=== PATIENT | male | born 1980 | race Caucasian/White ===

== ENCOUNTER 2019-06-22 20:21 | Emergency (ER) | payer MEDICAID ==
[~2019-06-22] VITALS: Ht 177.2 cm; Wt 142.7 kg
[~2019-06-22 20:21] MED LIST: CLON-527 PO; FLUT16SP10 NAS; FURO-150 PO; HYDR-4383 PO; LISI-600 PO; METF500T PO; PRAZ2CAP2 PO; TEMA30CA5 PO
[2019-06-22] MEDS ORDERED: naproxen 500mg tablet PO STA (20:35)
[2019-06-22] MEDS ORDERED: HYDROcodone/acetaminophen 10/325mg tab PO STA (20:35)
--- NOTE | 2019-06-22 21:02 | NUR ---
pt vomited, unsure of wheher or not he vomited pain meds up
[2019-06-22] MEDS ORDERED: ketorolac trometh. 30mg/ml inj. IM ONE (21:10)
[2019-06-22] MEDS ORDERED: cyclobenzaprine 10mg tablet PO ONE (21:10)
[2019-06-22] MEDS ORDERED: morphine 10mg/ml inj. IM ONE (21:10)
[2019-06-22] MEDS ORDERED: LORazepam 2 mg/ml vial IM ONE (21:15)
[2019-06-22] MEDS ORDERED: haloperidol lactate 5mg/ml inj IM ONE (21:15)
[2019-06-22 21:40] LABS: ALANINE AMINOTRANSFERASE 61 U/L (12-78); ALBUMIN/GLOBULIN RATIO 0.9 (1.1-1.5); ALKALINE PHOSPHATASE 130 IU/L (46-116); ANION GAP 10 (8-16); ASPARTATE AMINO TRANSFERASE 10 U/L (10-37); BILIRUBIN,TOTAL 0.6 MG/DL (0.1-1.0); BLOOD UREA NITROGEN 11 MG/DL (7-18); BUN/CREATININE RATIO 10.8 (5.4-32.0); CALCIUM 8.7 MG/DL (8.5-10.1); CHLORIDE 106 MMOL/L (99-107); CREATININE 1.02 MG/DL (0.60-1.10); ETHANOL < 0.010 GM/DL (0.0-0.010); GLUCOSE 122 MG/DL (70-104); MAGNESIUM 1.5 MG/DL (1.5-2.4); SODIUM 143 MMOL/L (135-145); TOTAL PROTEIN 8.3 G/DL (6.4-8.2); eGFR 82 ML/MIN
[2019-06-22 21:46] LABS: HEMATOCRIT 47.5 % (42.0-52.0); HEMOGLOBIN 16.6 g/dl (14.0-17.9); MEAN CORPUSCULAR HEMOGLOBIN 30.8 PG (27.0-31.0); MEAN CORPUSCULAR HGB CONC 34.9 g/dL (33.0-36.5); MEAN CORPUSCULAR VOLUME 88.1 FL (78-98); POTASSIUM 3.8 MMOL/L (3.5-5.1); RED BLOOD COUNT 5.39 X10'6 (4.70-6.10); RED CELL DISTRIBUTION WIDTH 13.2 % (11.5-14.5); WHITE BLOOD COUNT 10.5 X10'3 (4.5-11.0)
[2019-06-22 21:47] LABS: MEAN PLATELET VOLUME 9.7 FL (7.4-10.4); PLATELET COUNT 251 X10'3 (140-440)
[2019-06-22] MEDS ORDERED: magnesium oxide 400mg tablet PO ONE (21:50)
[2019-06-22] MEDS ORDERED: CYCL-1 PO (21:53)
[2019-06-22] MEDS ORDERED: HYDR-3965 PO (21:53)
[2019-06-22] MEDS ORDERED: NAPR-56 PO (21:53)
[2019-06-22 22:12] VITALS: BP 146/91
[2019-06-22 22:17] LABS: TOTAL CELLS COUNTED 100
[2019-06-22 22:18] LABS: PLATELET ESTIMATE NORMAL
== END 2019-06-22 22:15 | disposition home or self-care (01) ==
LOC: ER 20:21
DX: M25.511 Pain in right shoulder (principal); R25.2 Cramp and spasm; E78.00 Pure hypercholesterolemia, unspecified; I10 Essential (primary) hypertension; J44.9 Chronic obstructive pulmonary disease, unspecified; E11.9 Type 2 diabetes mellitus without complications; F17.200 Nicotine dependence, unspecified, uncomplicated; F12.90 Cannabis use, unspecified, uncomplicated; Z90.49 Acquired absence of other specified parts of digestive tract; Z88.8 Allergy status to other drugs, medicaments and biological substances; Z79.899 Other long term (current) drug therapy; X50.0XXA Overexertion from strenuous movement or load, initial encounter; Y93.89 Activity, other specified; Y92.89 Other specified places as the place of occurrence of the external cause; Y99.9 Unspecified external cause status
CPT/HCPCS: 73030; 80053; 80320; 83735; 85025; 96372; 99284; J1630; J1885; J2060; J2270

== ENCOUNTER 2020-03-01 14:02 | Outpatient (CLI) | payer MEDICAID ==
[~2020-03-01 14:02] MED LIST changes: +CYCL-1 PO
== END 2020-03-01 23:59 | disposition home or self-care (01) ==
LOC: RAD 14:02
DX: G40.909 Epilepsy, unspecified, not intractable, without status epilepticus (principal)
CPT/HCPCS: 95819

== ENCOUNTER 2021-11-04 17:41 | Inpatient (IN) | payer MEDICARE, MEDICAID ==
[~2021-11-04] VITALS: Ht 175.3 cm; Wt 122.0 kg
[2021-11-04 00:45] VITALS: BP 165/100
[~2021-11-04 17:41] MED LIST changes: -LISI-600 PO; +LISI20TA28 PO
[2021-11-04] MEDS ORDERED: ketorolac trometh. 30mg/ml inj. IV ONE ×2 (17:50→18:00)
[2021-11-04] MEDS ORDERED: ondansetron/PF 4mg/2ml inj IV ONE ×2 (18:00→21:00)
[2021-11-04] MEDS ORDERED: normal saline 1000ML IV soln IVB ONE (18:00)
[2021-11-04] MEDS: morphine 4 MG/ML inj SYRINge IV PRN ×3 (18:10→23:53)
[2021-11-04 18:22] LABS: BASOPHILS # (AUTO) 0.1 X10'3 (0-0.2); BASOPHILS % (AUTO) 0.6 % (0-1); EOSINOPHILS % (AUTO) 0.2 % (0-6); HEMATOCRIT 48.6 % (42.0-52.0); HEMOGLOBIN 16.8 g/dl (14.0-17.9); LYMPHOCYTES # (AUTO) 1.9 X10'3 (1.1-4.8); LYMPHOCYTES % (AUTO) 11.4 % (21-51); MEAN CORPUSCULAR HEMOGLOBIN 30.6 PG (27.0-31.0); MEAN CORPUSCULAR HGB CONC 34.5 g/dL (33.0-36.5); MEAN CORPUSCULAR VOLUME 88.5 FL (78-98); MEAN PLATELET VOLUME 10.2 FL (7.4-10.4); MONOCYTES # (AUTO) 0.7 X10'3 (0-0.9); MONOCYTES % (AUTO) 4.2 % (2-12); NEUTROPHILS # (AUTO) 14.1 X10'3 (1.8-7.7); NEUTROPHILS % (AUTO) 83.6 % (42-75); PLATELET COUNT 244 X10'3 (140-440); RED BLOOD COUNT 5.49 X10'6 (4.70-6.10); RED CELL DISTRIBUTION WIDTH 14.4 % (11.5-14.5); WHITE BLOOD COUNT 16.8 X10'3 (4.5-11.0)
[2021-11-04 18:33] LABS: ALANINE AMINOTRANSFERASE 48 U/L (12-78); ALBUMIN/GLOBULIN RATIO 0.9 (1.1-1.5); ALKALINE PHOSPHATASE 108 IU/L (46-116); ANION GAP 15 (8-16); ASPARTATE AMINO TRANSFERASE 24 U/L (10-37); BILIRUBIN,TOTAL 1.4 MG/DL (0.1-1.0); BLOOD UREA NITROGEN 11 MG/DL (7-18); BUN/CREATININE RATIO 12.4 (5.4-32.0); CALCIUM 9.4 MG/DL (8.5-10.1); CHLORIDE 102 MMOL/L (99-107); CREATININE 0.89 MG/DL (0.60-1.10); GLUCOSE 145 MG/DL (70-104); POTASSIUM 3.4 MMOL/L (3.5-5.1); SODIUM 139 MMOL/L (135-145); TOTAL CARBON DIOXIDE 22.4 MMOL/L (24-32); TOTAL PROTEIN 8.7 G/DL (6.4-8.2); eGFR > 90 ML/MIN
[2021-11-04 18:57] LABS: LIPASE 1405 U/L (73-393)
[2021-11-04 19:13] LABS: CLARITY,URINE CLEAR (Clear); COLOR,URINE YELLOW (Yellow); GLUCOSE, URINE >=1000 mg/dl (Neg); KETONES,URINE >=80 mg/dl (Neg); LEUKOCYTE ESTERASE ,URINE NEGATIVE (Neg); NITRITES, URINE NEGATIVE (Neg); OCCULT BLOOD,URINE MODERATE (Neg); PROTEIN,URINE NEGATIVE (Neg); UROBILINOGEN,URINE 0.2 E.U/dL (0.2-1.0)
[2021-11-04 19:22] LABS: UA COLLECTION TYPE URINAL
[2021-11-04 19:26] LABS: BACTERIA,URINE FEW /HPF (Neg); RBC,URINE 0-2 /HPF (0-2); SQUAMOUS EPITHELIAL CELL,UR NONE SEEN /LPF (FEW); WBC,URINE 0-4 /HPF (0-4)
[2021-11-04] MEDS ORDERED: piperacillin/tazo 3.375gm/50ml 50 ML IV ONE (20:35)
[2021-11-04] MEDS ORDERED: temazepam 15mg capsule PO PRN (21:00)
[2021-11-04] MEDS ORDERED: diphenhydrAMINE 25mg capsule PO PRN (22:10)
[2021-11-04] MEDS ORDERED: ondansetron 4mg rapidly disintigrating tab PO PRN (22:10)
[2021-11-04] MEDS ORDERED: HYDROcodone/acetaminophen 5mg/325mg tablet PO PRN (22:10)
[2021-11-04] MEDS ORDERED: bisacodyl 10mg suppository rectal RC PRN (22:10)
[2021-11-04] MEDS ORDERED: diphenhydrAMINE 50 mg/ml inj IV PRN (22:10)
[2021-11-04] MEDS: potassium Cl 20mEq in NS 1,000 ML IV SCH (22:10)
[2021-11-04] MEDS ORDERED: mag hydrox/Alum hydrox/simeth 30ml oral suspension PO PRN (22:10)
[2021-11-04] MEDS ORDERED: POTASSIUM BICARB 20meq eff tab 20 MEQ TABLET.EFF PO PRN ×2 (22:10)
[2021-11-04] MEDS ORDERED: acetaminophen 325mg tablet PO PRN ×2 (22:10)
[2021-11-04] MEDS ORDERED: morphine 2 MG/ML inj. syringe IV PRN ×2 (22:10)
[2021-11-04] MEDS ORDERED: magnesium Cl slow-release 64mg tablet PO PRN (22:10)
[2021-11-04] MEDS ORDERED: magnesium 2GM in 50ml NS 50 ML IV PRN (22:10)
[2021-11-04] MEDS ORDERED: magnesium hydroxide 30ml (MOM) UD suspension PO PRN (22:10)
[2021-11-04] MEDS ORDERED: magnesium 4gm in 100ml NS 100 ML IV PRN (22:10)
[2021-11-04] MEDS ORDERED: insulin Lispro (HumaLOG) vial - multi-dose SQ SCH (22:15)
[2021-11-04] MEDS ORDERED: glucagon, human recombinant 1mg kit SUBCUT PRN (22:15)
[2021-11-04] MEDS ORDERED: MESSAGE TO PHARMACY PO ONE (22:15)
[2021-11-04] MEDS ORDERED: dextrose 50%-water 50ml dispensing syringe IV PRN ×2 (22:15)
[2021-11-04] MEDS ORDERED: DEXTROSE 15 GM of carb/4 tabs (each vial/BOTTLE has 4 tablets) PO PRN ×2 (22:15)
[2021-11-04 22:22] LABS: TOTAL CELLS COUNTED 100; TOXIC GRANULATION 1+
[2021-11-04 22:23] LABS: PLATELET ESTIMATE NORMAL
[2021-11-04 22:45] LABS: HEMOGLOBIN A1C 6.7 % (4.5-6.2)
[2021-11-04 22:50] LABS: URINE AMPHETAMINE SCREEN NEGATIVE (Neg); URINE BARBITUATE SCREEN NEGATIVE (Neg); URINE BENZODIAZEPINES SCREEN NEGATIVE (Neg); URINE CANNABINOID SCREEN POSITIVE (Neg); URINE COCAINE SCREEN NEGATIVE (Neg); URINE METHADONE SCREEN NEGATIVE (Neg); URINE OPIATE SCREEN POSITIVE (Neg); URINE PHENCYCLIDINE SCREEN NEGATIVE (Neg)
[2021-11-04 22:52] LABS: APTT 26 SECONDS (22-32)
[2021-11-04 22:54] LABS: AMYLASE 80 U/L (25-115); CREATINE KINASE 93 U/L (39-308); LIPASE 372 U/L (73-393); MAGNESIUM 1.4 MG/DL (1.5-2.4); POTASSIUM 3.2 MMOL/L (3.5-5.1)
[2021-11-05] VITALS (17 sets, daily range): BP systolic 126–175; BP diastolic 82–114
--- NOTE | 2021-11-05 00:18 | NUR ---
Received report from Nahum Porter RN. Patient to follow shortly.
[2021-11-05] MEDS ORDERED: potassium CL 10mEq/100ml bag 100 ML IV PRN (00:20)
[2021-11-05] MEDS ORDERED: potassium Cl 20 mEq SR tablet PO PRN (00:20)
[2021-11-05] MEDS ORDERED: magnesium Cl slow-release 64mg tablet PO PRN (00:20)
[2021-11-05] MEDS ORDERED: magnesium 4gm in 100ml NS 100 ML IV PRN (00:20)
--- NOTE | 2021-11-05 00:40 | NUR ---
Patient arrived to floor on a gurney from ER. A&O, now sitting on the side of bed. VS initiated and MRSA swab done. Patient is now taking his pre-surgical shower.
[2021-11-05] MEDS: HYDROcodone/acetaminophen 10/325mg tab PO PRN ×4 (01:35→23:45)
[2021-11-05] MEDS: potassium CL 10mEq/100ml bag 100 ML IV PRN ×3 (01:50→05:55)
[2021-11-05] MEDS ORDERED: OMEG-167 PO (04:04)
[2021-11-05] MEDS ORDERED: CHOL100025 PO (04:04)
[2021-11-05] MEDS ORDERED: FLO0.4C PO (04:04)
[2021-11-05] MEDS ORDERED: FEXO1TAB8 PO (04:04)
[2021-11-05] MEDS ORDERED: HYDR25TA5 PO (04:04)
[2021-11-05] MEDS ORDERED: ATOR20TA PO (04:04)
[2021-11-05] MEDS ORDERED: OMEP40CA21 PO (04:04)
[2021-11-05] MEDS: HYDROmorphone inj. 0.5 MG/0.5 ML DISP.SYRIN IV PRN ×3 (04:19→22:56)
--- NOTE | 2021-11-05 06:30 | NUR ---
Patient has been taken to surgery right after POC blood sugar obtained. Reported off to Lory WALKER.
[2021-11-05] MEDS ORDERED: LIDOcaine 1% W/epiNEPHrine 1:100,000 20ml vial ONE (06:39)
[2021-11-05] MEDS ORDERED: BUPIVAcaine/PF 2.5 mg/ml (0.25%) 30ml vial ONE (06:39)
[2021-11-05] MEDS ORDERED: LIDOcaine 1% 30ml preserv. free vial ONE (06:39)
[2021-11-05] MEDS ORDERED: ondansetron/PF 4mg/2ml inj ONE (07:04)
[2021-11-05] MEDS ORDERED: sevoflurane 250ml liquid IH ONE (07:04)
[2021-11-05] MEDS ORDERED: rocuronium 10mg/ml inj IV ONE ×2 (07:04→07:06)
[2021-11-05] MEDS ORDERED: fentaNYL /PF 50mcg/ml 5ml ampule ONE (07:05)
[2021-11-05] MEDS ORDERED: midazolam 1 mg/ML 2ml injection ONE (07:05)
[2021-11-05] MEDS ORDERED: propofol inj 20 ML IV ONE (07:06)
[2021-11-05 07:19] LABS: BASOPHILS # (AUTO) 0.1 X10'3 (0-0.2); BASOPHILS % (AUTO) 0.5 % (0-1); EOSINOPHILS # (AUTO) 0.4 X10'3 (0-0.9); EOSINOPHILS % (AUTO) 2.3 % (0-6); HEMATOCRIT 49.3 % (42.0-52.0); HEMOGLOBIN 16.2 g/dl (14.0-17.9); LYMPHOCYTES # (AUTO) 2.5 X10'3 (1.1-4.8); LYMPHOCYTES % (AUTO) 15.9 % (21-51); MEAN CORPUSCULAR HEMOGLOBIN 29.2 PG (27.0-31.0); MEAN CORPUSCULAR HGB CONC 32.8 g/dL (33.0-36.5); MEAN CORPUSCULAR VOLUME 88.9 FL (78-98); MEAN PLATELET VOLUME 10.1 FL (7.4-10.4); MONOCYTES # (AUTO) 1.4 X10'3 (0-0.9); NEUTROPHILS # (AUTO) 11.6 X10'3 (1.8-7.7); NEUTROPHILS % (AUTO) 72.3 % (42-75); PLATELET COUNT 212 X10'3 (140-440); RED BLOOD COUNT 5.55 X10'6 (4.70-6.10); RED CELL DISTRIBUTION WIDTH 14.3 % (11.5-14.5)
[2021-11-05] MEDS ORDERED: meperidine/PF 25mg/ml syringe IV PRN ×2 (07:40)
[2021-11-05] MEDS ORDERED: ondansetron/PF 4mg/2ml inj IV PRN (07:40)
[2021-11-05] MEDS ORDERED: proCHLORperazine 10 MG/2 ml inj IV PRN (07:40)
[2021-11-05] MEDS ORDERED: ringers solution, lacted 1,000 ML IV SCH (07:40)
[2021-11-05] MEDS ORDERED: morphine 2 MG/ML inj. syringe IV PRN (07:40)
[2021-11-05] MEDS ORDERED: BUPIVAcaine 0.5% inj/PF 30 ml vial IJ ONE (07:44)
[2021-11-05] MEDS ORDERED: LIDOcaine 1% 30ml preserv. free vial IJ ONE (07:47)
[2021-11-05 07:48] LABS: ALANINE AMINOTRANSFERASE 38 U/L (12-78); ALBUMIN 3.5 G/DL (3.4-5.0); ALBUMIN/GLOBULIN RATIO 0.8 (1.1-1.5); ALKALINE PHOSPHATASE 87 IU/L (46-116); ANION GAP 11 (8-16); ASPARTATE AMINO TRANSFERASE 20 U/L (10-37); BILIRUBIN,TOTAL 1.1 MG/DL (0.1-1.0); BLOOD UREA NITROGEN 9 MG/DL (7-18); BUN/CREATININE RATIO 14.3 (5.4-32.0); CALCIUM 7.8 MG/DL (8.5-10.1); CHLORIDE 105 MMOL/L (99-107); CHOL/HDL RATIO 2.9 (0.00-4.99); CHOLESTEROL 83 MG/DL (0-200); CREATININE 0.63 MG/DL (0.60-1.10); GLUCOSE 87 MG/DL (70-104); HDL CHOLESTEROL 29 MG/DL (35-60); LDL CHOLESTEROL 37 MG/DL (50-100); MAGNESIUM 2.5 MG/DL (1.5-2.4); POTASSIUM 3.3 MMOL/L (3.5-5.1); SODIUM 141 MMOL/L (135-145); TOTAL CARBON DIOXIDE 24.7 MMOL/L (24-32); TOTAL PROTEIN 7.8 G/DL (6.4-8.2); TRIGLYCERIDES 137 MG/DL (20-135); eGFR > 90 ML/MIN
[2021-11-05] MEDS: K and/or MAG REPLACEMENT MC SCH ×4 (08:00→20:00)
[2021-11-05] MEDS: piperacillin/tazo 4.5gm/100ml 100 ML IV SCH ×3 (08:00→23:53)
[2021-11-05] MEDS: potassium Cl 20mEq in NS 1,000 ML IV SCH ×2 (08:10→19:23)
[2021-11-05] MEDS ORDERED: naloxone 0.4 mg/ml inj IV PRN (09:25)
[2021-11-05] MEDS ORDERED: HYDROcodone/acetaminophen 10/325mg tab PO PRN (09:25)
[2021-11-05] MEDS ORDERED: HYDROcodone/acetaminophen 5mg/325mg tablet PO PRN (09:25)
[2021-11-05] MEDS ORDERED: dexamethasone sod phosphate 4mg/ml inj. ONE (09:28)
[2021-11-05] MEDS ORDERED: sugammadex 200mg/2ml injection IV ONE (09:29)
[2021-11-05] MEDS ORDERED: neostigmine methylsulfate 1 MG/ML 10ml vial ONE (09:30)
[2021-11-05] MEDS ORDERED: glycopyrrolate 0.2mg/ml inj ONE (09:30)
[2021-11-05] MEDS: morphine 4 MG/ML inj SYRINge IV PRN ×3 (09:46→10:32)
--- NOTE | 2021-11-05 09:49 | NUR ---
Malnutrition consult: Pt reports 24-33 lb wt loss with decreased appetite per malnutrition risk screen with RN. Pt admit for acute appendicitis and acute pancreatitis, currently in OR. Most recent scaled wt hx in EMR is 131.5 kg from 12/31/14, which is consistent with following reported wt hx. Current documented wt is 122 kg though isn't scaled. Pt likely experienced some changes in eating habits secondary to pain with N/V. No documented significant decrease in muscle strength or edema and per H&P pt appears well developed well nourished. Pt currently lacks a minimum of two criteria for malnutrition. Noted pt with PMH T2DM, well controlled with A1c 6.7%, DM education not warranted at this time. Will continue to follow. Addendum: 11/05/21 at [address] Amended: Links added.
[2021-11-05] MEDS: meperidine/PF 25mg/ml syringe IV PRN ×3 (09:52→10:53)
--- NOTE | 2021-11-05 11:05 | NUR ---
PATIENT HAS MET CRITERIA FOR TRANSFER TO THE PCU. VSS. DRESSINGS INTACT. BED LOW, CALL LIGHT PRESENT AND 2 RAILS UP. RN PRESENT TO ACCEPT CARE OF PATIENT AND REPORT HAS BEEN CALLED. ALL QUESTIONS ANSWERED TO ACCEPTING RN. MD AWARE ABOUT THE CONSISTENT PAIN LEVEL AND PAIN MEDICATION GIVEN AND NO NEW ORDERED RECEIVED AT THIS TIME. Addendum: 11/05/21 at 1142 by Willam Dumont RN Amended: Links added.
[2021-11-05] MEDS: pantoprazole 40MG/NS 100ML BAG 100 ML IV SCH (13:02)
[2021-11-05] MEDS: docusate sod 100mg capsule PO SCH ×2 (13:03→21:55)
[2021-11-05] MEDS ORDERED: ALBU17AE26 PO (15:10)
[2021-11-05] MEDS ORDERED: DULA1.5P SQ (15:10)
[2021-11-05] MEDS ORDERED: GLIM4TAB7 PO (15:10)
[2021-11-05] MEDS ORDERED: OMEP20CA16 PO (15:10)
[2021-11-05] MEDS ORDERED: CLON-373 PO (15:10)
[2021-11-05] MEDS ORDERED: LISI40TA13 PO (15:10)
[2021-11-05] MEDS ORDERED: ACET-655 PO (15:10)
[2021-11-05] MEDS ORDERED: FLO110IN PO (15:10)
[2021-11-05] MEDS ORDERED: CLON0.3T36 PO (15:10)
[2021-11-05] MEDS ORDERED: FEXO-310 PO (15:10)
[2021-11-05] MEDS ORDERED: AMLO5TAB16 PO (15:10)
[2021-11-05] MEDS ORDERED: METF-438 PO (15:10)
[2021-11-05] MEDS ORDERED: DAPA10TA PO (15:10)
[2021-11-05] MEDS ORDERED: CHOL500050 PO (15:10)
[2021-11-05] MEDS ORDERED: FLUT1BLS4 (15:10)
[2021-11-05] MEDS ORDERED: EREN70AU SQ (15:10)
[2021-11-05] MEDS ORDERED: PIOG15TA70 PO (15:10)
[2021-11-05] MEDS ORDERED: GABA300C PO ×2 (15:13)
--- NOTE | 2021-11-05 18:40 | NUR ---
Patient in room PCU 3012. I have received report from Lory WALKER and had the opportunity to ask questions and assume patient care.
--- NOTE | 2021-11-05 19:00 | NUR ---
Patient is currently on clears as post-op. Has had broth, juice and water thus far. Addendum: 11/05/21 at 2037 by Jessika Thakkar RN Amended: Links added.
[2021-11-05] MEDS ORDERED: cyclobenzaprine 10mg tablet PO PRN (20:50)
[2021-11-05] MEDS ORDERED: ERENUMAB AOOE 70 MG SQ SCH (20:50)
[2021-11-05] MEDS ORDERED: ACETAMINOPHEN PO PRN (20:50)
[2021-11-05] MEDS ORDERED: albuterol 2.5 MG/3 ML nebule NEB PRN (20:55)
[2021-11-05] MEDS: potassium Cl 20 mEq SR tablet PO PRN (21:54)
[2021-11-05] MEDS: gabapentin 300mg capsule PO SCH (21:54)
[2021-11-05] MEDS: heparin, porcine 5000 units/ml vial SQ SCH (21:56)
[2021-11-05] MEDS: cloNIDine 0.1 mg tablet PO SCH (21:57)
[2021-11-05] MEDS: clonazePAM 1mg tablet PO SCH (21:58)
[2021-11-06 02:00] VITALS: BP 142/102
[2021-11-06] MEDS: HYDROcodone/acetaminophen 10/325mg tab PO PRN (02:45)
[2021-11-06] MEDS: potassium Cl 20 mEq SR tablet PO PRN (02:46)
[2021-11-06] MEDS: potassium Cl 20mEq in NS 1,000 ML IV SCH ×2 (03:55→15:44)
[2021-11-06] MEDS: HYDROmorphone inj. 0.5 MG/0.5 ML DISP.SYRIN IV PRN (06:01)
[2021-11-06 06:36] LABS: BASOPHILS % (AUTO) 0.2 % (0-1); EOSINOPHILS % (AUTO) 0.3 % (0-6); HEMATOCRIT 43.5 % (42.0-52.0); HEMOGLOBIN 14.7 g/dl (14.0-17.9); LYMPHOCYTES % (AUTO) 16.4 % (21-51); MEAN CORPUSCULAR HEMOGLOBIN 30.4 PG (27.0-31.0); MEAN CORPUSCULAR HGB CONC 33.7 g/dL (33.0-36.5); MEAN CORPUSCULAR VOLUME 90.4 FL (78-98); MEAN PLATELET VOLUME 9.5 FL (7.4-10.4); MONOCYTES # (AUTO) 1.2 X10'3 (0-0.9); MONOCYTES % (AUTO) 10.2 % (2-12); NEUTROPHILS # (AUTO) 8.9 X10'3 (1.8-7.7); NEUTROPHILS % (AUTO) 72.9 % (42-75); PLATELET COUNT 181 X10'3 (140-440); RED BLOOD COUNT 4.82 X10'6 (4.70-6.10); RED CELL DISTRIBUTION WIDTH 14.3 % (11.5-14.5); WHITE BLOOD COUNT 12.2 X10'3 (4.5-11.0)
[2021-11-06 06:37] LABS: ALANINE AMINOTRANSFERASE 26 U/L (12-78); ALBUMIN 2.9 G/DL (3.4-5.0); ALBUMIN/GLOBULIN RATIO 0.7 (1.1-1.5); ALKALINE PHOSPHATASE 72 IU/L (46-116); ANION GAP 5 (8-16); ASPARTATE AMINO TRANSFERASE 17 U/L (10-37); BLOOD UREA NITROGEN 9 MG/DL (7-18); BUN/CREATININE RATIO 12.2 (5.4-32.0); CALCIUM 7.8 MG/DL (8.5-10.1); CHLORIDE 108 MMOL/L (99-107); CREATININE 0.74 MG/DL (0.60-1.10); GLUCOSE 141 MG/DL (70-104); POTASSIUM 3.9 MMOL/L (3.5-5.1); SODIUM 141 MMOL/L (135-145); TOTAL CARBON DIOXIDE 27.7 MMOL/L (24-32); TOTAL PROTEIN 6.9 G/DL (6.4-8.2); eGFR > 90 ML/MIN
--- NOTE | 2021-11-06 07:00 | NUR ---
Patient in room PCU 3012. I have received report from MARQUES WALKER and had the opportunity to ask questions and assume patient care.
--- NOTE | 2021-11-06 07:02 | NUR ---
Problems reprioritized. Patient report given, questions answered & plan of care reviewed with Tosha WALKER.
[2021-11-06 08:00] VITALS: BP 134/92
[2021-11-06] MEDS ORDERED: OMEGA-3/DHA/EPA/FISH OIL 1 EACH CAPSULE.DR PO SCH ×3 (08:00→11:01)
[2021-11-06] MEDS: K and/or MAG REPLACEMENT MC SCH ×3 (08:00→20:00)
[2021-11-06] MEDS: (Fluticasone/Umeclidin/Vilanter (Trelegy Ellipta 100-62.5-25) 1 PUFFS) IH SCH (08:00)
[2021-11-06] MEDS: HYDROmorphone 1 mg/ml syringe IV PRN ×5 (08:15→23:34)
[2021-11-06] MEDS: budesonide 0.5mg/2ml UD nebule IH SCH ×2 (08:16→21:12)
[2021-11-06] MEDS: pantoprazole 40MG/NS 100ML BAG 100 ML IV SCH (08:18)
[2021-11-06] MEDS: cholecalciferol (vitamin D3) 1,000 unit (25mcg) tablet PO SCH (08:22)
[2021-11-06] MEDS: docusate sod 100mg capsule PO SCH ×2 (08:23→20:33)
[2021-11-06] MEDS: loratadine 10mg tablet PO SCH (08:23)
[2021-11-06] MEDS: lisinopril 20mg tablet PO SCH (08:23)
[2021-11-06] MEDS: tamsulosin 0.4mg capsule PO SCH (08:23)
[2021-11-06] MEDS: atorvastatin 20mg tablet PO SCH (08:24)
[2021-11-06] MEDS: metFORMIN 500mg tablet PO SCH ×2 (08:24→20:36)
[2021-11-06] MEDS: pantoprazole 40mg Tablet.DR PO SCH (08:25)
[2021-11-06] MEDS: gabapentin 300mg capsule PO SCH ×3 (08:25→20:57)
[2021-11-06] MEDS: HYDROchlorothiazide 25mg tablet PO SCH (08:25)
[2021-11-06] MEDS: clonazePAM 1mg tablet PO SCH ×3 (08:25→20:56)
[2021-11-06] MEDS: DAPAGLIFLOZIN 10MG TABLET PO SCH (08:26)
[2021-11-06] MEDS: amLODIPine 5mg tablet PO SCH (08:26)
[2021-11-06] MEDS: heparin, porcine 5000 units/ml vial SQ SCH ×2 (08:27→20:37)
[2021-11-06] MEDS: pioglitazone 15mg tablet PO SCH (08:27)
[2021-11-06] MEDS ORDERED: omega-3 acid ethyl esters 1GM capsule PO SCH (08:45)
[2021-11-06] MEDS ORDERED: oxyCODONE/APAP 5-325mg tablet PO PRN (09:15)
[2021-11-06] MEDS: piperacillin/tazo 4.5gm/100ml 100 ML IV SCH ×3 (09:15→23:12)
[2021-11-06] MEDS: ondansetron/PF 4mg/2ml inj IV PRN ×2 (09:22→16:00)
--- NOTE | 2021-11-06 10:43 | NUR ---
PATIENT 10/10 PAIN AT START OF SHIFT Seen by dR Watson. DILAUDID INCREASED TO 1mg,to give stat. patient reports after an hour still 10/10. Dr Watson increased dose to 2mg q2hrly to give stat. will continue to monitor. patient ambulated x1 .
[2021-11-06 11:54] VITALS: BP 126/75
--- NOTE | 2021-11-06 13:43 | NUR ---
medicated for pain slight improvement per patient. encouraged to ambulate . will continue to monitor
[2021-11-06 15:00] VITALS: BP 116/77
[2021-11-06] MEDS: oxyCODONE/APAP 5-325mg tablet PO PRN ×2 (16:39→21:04)
[2021-11-06 18:00] VITALS: BP 106/71
--- NOTE | 2021-11-06 18:19 | NUR ---
Problems reprioritized. Patient report given, questions answered & plan of care reviewed with Lorene WALKER.
--- NOTE | 2021-11-06 18:30 | NUR ---
Patient in room PCU 3012. I have received report from Tosha and had the opportunity to ask questions and assume patient care.
[2021-11-06] MEDS: cloNIDine 0.1 mg tablet PO SCH (21:02)
[2021-11-06 22:00] VITALS: BP 134/83
--- NOTE | 2021-11-06 23:17 | NUR ---
Brought pt inhalers to pharmacy.
[2021-11-07] MEDS: HYDROmorphone 1 mg/ml syringe IV PRN ×4 (01:52→13:53)
--- NOTE | 2021-11-07 01:58 | NUR ---
Dilauded IV medication not scanned d/t broken scanner. All other pt identifiers used.
[2021-11-07 02:00] VITALS: BP 120/76
[2021-11-07] MEDS: potassium Cl 20mEq in NS 1,000 ML IV SCH ×2 (03:28→14:17)
[2021-11-07] MEDS: oxyCODONE/APAP 5-325mg tablet PO PRN (05:56)
[2021-11-07 06:24] LABS: BASOPHILS % (AUTO) 0.4 % (0-1); EOSINOPHILS # (AUTO) 0.1 X10'3 (0-0.9); EOSINOPHILS % (AUTO) 1.1 % (0-6); HEMATOCRIT 41.8 % (42.0-52.0); LYMPHOCYTES # (AUTO) 2.5 X10'3 (1.1-4.8); LYMPHOCYTES % (AUTO) 25.2 % (21-51); MEAN CORPUSCULAR HEMOGLOBIN 30.5 PG (27.0-31.0); MEAN CORPUSCULAR HGB CONC 33.5 g/dL (33.0-36.5); MEAN CORPUSCULAR VOLUME 91.1 FL (78-98); MEAN PLATELET VOLUME 9.2 FL (7.4-10.4); MONOCYTES % (AUTO) 10.2 % (2-12); NEUTROPHILS # (AUTO) 6.4 X10'3 (1.8-7.7); NEUTROPHILS % (AUTO) 63.1 % (42-75); PLATELET COUNT 180 X10'3 (140-440); RED BLOOD COUNT 4.59 X10'6 (4.70-6.10); RED CELL DISTRIBUTION WIDTH 14.8 % (11.5-14.5); WHITE BLOOD COUNT 10.1 X10'3 (4.5-11.0)
--- NOTE | 2021-11-07 06:29 | NUR ---
Patient in room PCU 3012. I have received report from Tiffany WALKER and had the opportunity to ask questions and assume patient care.
--- NOTE | 2021-11-07 06:33 | NUR ---
Problems reprioritized. Patient report given, questions answered & plan of care reviewed with Tosha WALKER.
[2021-11-07 06:38] LABS: ALANINE AMINOTRANSFERASE 24 U/L (12-78); ALBUMIN 2.7 G/DL (3.4-5.0); ALBUMIN/GLOBULIN RATIO 0.7 (1.1-1.5); ALKALINE PHOSPHATASE 72 IU/L (46-116); ANION GAP 3 (8-16); ASPARTATE AMINO TRANSFERASE 14 U/L (10-37); BILIRUBIN,TOTAL 0.9 MG/DL (0.1-1.0); BLOOD UREA NITROGEN 14 MG/DL (7-18); BUN/CREATININE RATIO 14.9 (5.4-32.0); CALCIUM 8.1 MG/DL (8.5-10.1); CHLORIDE 108 MMOL/L (99-107); CREATININE 0.94 MG/DL (0.60-1.10); GLUCOSE 131 MG/DL (70-104); MAGNESIUM 1.9 MG/DL (1.5-2.4); SODIUM 141 MMOL/L (135-145); TOTAL CARBON DIOXIDE 29.9 MMOL/L (24-32); TOTAL PROTEIN 6.7 G/DL (6.4-8.2); eGFR 89 ML/MIN
[2021-11-07 06:45] VITALS: BP 117/79
[2021-11-07] MEDS: piperacillin/tazo 4.5gm/100ml 100 ML IV SCH ×2 (07:35→16:56)
[2021-11-07] MEDS: tamsulosin 0.4mg capsule PO SCH (07:36)
[2021-11-07] MEDS: pantoprazole 40mg Tablet.DR PO SCH (07:37)
[2021-11-07] MEDS: atorvastatin 20mg tablet PO SCH (07:37)
[2021-11-07] MEDS: pioglitazone 15mg tablet PO SCH (07:37)
[2021-11-07] MEDS: loratadine 10mg tablet PO SCH (07:37)
[2021-11-07] MEDS: cholecalciferol (vitamin D3) 1,000 unit (25mcg) tablet PO SCH (07:37)
[2021-11-07] MEDS: metFORMIN 500mg tablet PO SCH ×2 (07:37→19:50)
[2021-11-07] MEDS: clonazePAM 1mg tablet PO SCH ×3 (07:38→21:04)
[2021-11-07] MEDS: amLODIPine 5mg tablet PO SCH (07:38)
[2021-11-07] MEDS: docusate sod 100mg capsule PO SCH ×2 (07:39→19:50)
[2021-11-07] MEDS: lisinopril 20mg tablet PO SCH (07:39)
[2021-11-07] MEDS: gabapentin 300mg capsule PO SCH ×3 (07:39→21:04)
[2021-11-07] MEDS: HYDROchlorothiazide 25mg tablet PO SCH (07:39)
[2021-11-07] MEDS: heparin, porcine 5000 units/ml vial SQ SCH ×2 (07:40→19:53)
[2021-11-07] MEDS: DAPAGLIFLOZIN 10MG TABLET PO SCH (08:00)
[2021-11-07] MEDS: K and/or MAG REPLACEMENT MC SCH ×2 (08:00→20:00)
[2021-11-07] MEDS ORDERED: omega-3 acid ethyl esters 1GM capsule PO SCH (08:03)
[2021-11-07] MEDS: (Fluticasone/Umeclidin/Vilanter (Trelegy Ellipta 100-62.5-25) 1 PUFFS) IH SCH (09:38)
[2021-11-07] MEDS: budesonide 0.5mg/2ml UD nebule IH SCH ×2 (09:38→20:14)
[2021-11-07 11:00] VITALS: BP 102/67
[2021-11-07] MEDS: oxyCODONE/APAP 5-325mg tablet PO SCH ×4 (11:07→19:51)
[2021-11-07] MEDS: OMEGA-3/DHA/EPA/FISH OIL 1 EACH CAPSULE.DR PO SCH ×2 (13:23→17:08)
[2021-11-07 15:00] VITALS: BP 139/78
[2021-11-07] MEDS ORDERED: magnesium hydroxide 30ml (MOM) UD suspension PO ONE (16:20)
[2021-11-07 18:00] VITALS: BP 125/79
--- NOTE | 2021-11-07 18:21 | NUR ---
patient up ambulated 300ft x1 much pain intermittently in right focalized area to lower abdomen at times .on walk. DR Rangel aware. percocet changed to Q4hrly with dilaudid for breakthrough pain. MOM given 60mls x1, No BM as yet. Report given to Lorene WALKER
[2021-11-07] MEDS: cloNIDine 0.1 mg tablet PO SCH (21:02)
[2021-11-07 22:00] VITALS: BP 137/80
[2021-11-08] MEDS: piperacillin/tazo 4.5gm/100ml 100 ML IV SCH ×2 (00:09→08:11)
[2021-11-08 02:00] VITALS: BP 113/72
[2021-11-08] MEDS: potassium Cl 20mEq in NS 1,000 ML IV SCH ×2 (02:48→06:10)
[2021-11-08] MEDS: HYDROmorphone 1 mg/ml syringe IV PRN (02:50)
[2021-11-08] MEDS: oxyCODONE/APAP 5-325mg tablet PO SCH ×3 (05:33→09:14)
[2021-11-08 06:00] VITALS: BP 111/67
[2021-11-08 06:32] LABS: BASOPHILS # (AUTO) 0.1 X10'3 (0-0.2); BASOPHILS % (AUTO) 0.6 % (0-1); EOSINOPHILS # (AUTO) 0.3 X10'3 (0-0.9); EOSINOPHILS % (AUTO) 3.8 % (0-6); HEMATOCRIT 41.8 % (42.0-52.0); LYMPHOCYTES # (AUTO) 2.4 X10'3 (1.1-4.8); LYMPHOCYTES % (AUTO) 28.6 % (21-51); MEAN CORPUSCULAR HEMOGLOBIN 30.6 PG (27.0-31.0); MEAN CORPUSCULAR HGB CONC 33.3 g/dL (33.0-36.5); MEAN CORPUSCULAR VOLUME 91.9 FL (78-98); MEAN PLATELET VOLUME 9.3 FL (7.4-10.4); MONOCYTES # (AUTO) 0.8 X10'3 (0-0.9); MONOCYTES % (AUTO) 9.9 % (2-12); NEUTROPHILS # (AUTO) 4.9 X10'3 (1.8-7.7); NEUTROPHILS % (AUTO) 57.1 % (42-75); PLATELET COUNT 186 X10'3 (140-440); RED BLOOD COUNT 4.55 X10'6 (4.70-6.10); RED CELL DISTRIBUTION WIDTH 14.6 % (11.5-14.5); WHITE BLOOD COUNT 8.6 X10'3 (4.5-11.0)
--- NOTE | 2021-11-08 06:44 | NUR ---
Problems reprioritized. Patient report given, questions answered & plan of care reviewed with esme guillermo.
[2021-11-08 06:48] LABS: ALANINE AMINOTRANSFERASE 23 U/L (12-78); ALBUMIN 2.6 G/DL (3.4-5.0); ALBUMIN/GLOBULIN RATIO 0.6 (1.1-1.5); ALKALINE PHOSPHATASE 78 IU/L (46-116); ANION GAP 6 (8-16); ASPARTATE AMINO TRANSFERASE 17 U/L (10-37); BILIRUBIN,TOTAL 0.7 MG/DL (0.1-1.0); BLOOD UREA NITROGEN 12 MG/DL (7-18); CALCIUM 8.2 MG/DL (8.5-10.1); CHLORIDE 107 MMOL/L (99-107); CREATININE 0.86 MG/DL (0.60-1.10); GLUCOSE 138 MG/DL (70-104); MAGNESIUM 1.9 MG/DL (1.5-2.4); SODIUM 144 MMOL/L (135-145); TOTAL CARBON DIOXIDE 31.4 MMOL/L (24-32); TOTAL PROTEIN 6.8 G/DL (6.4-8.2); eGFR > 90 ML/MIN
[2021-11-08] MEDS: (Fluticasone/Umeclidin/Vilanter (Trelegy Ellipta 100-62.5-25) 1 PUFFS) IH SCH (07:30)
[2021-11-08] MEDS: budesonide 0.5mg/2ml UD nebule IH SCH (07:39)
[2021-11-08] MEDS: K and/or MAG REPLACEMENT MC SCH (08:00)
[2021-11-08] MEDS: pantoprazole 40mg Tablet.DR PO SCH (08:13)
[2021-11-08] MEDS: pioglitazone 15mg tablet PO SCH (08:13)
[2021-11-08] MEDS: tamsulosin 0.4mg capsule PO SCH (08:13)
[2021-11-08] MEDS: cholecalciferol (vitamin D3) 1,000 unit (25mcg) tablet PO SCH (08:13)
[2021-11-08] MEDS: metFORMIN 500mg tablet PO SCH (08:17)
[2021-11-08] MEDS: DAPAGLIFLOZIN 10MG TABLET PO SCH (08:17)
[2021-11-08] MEDS: HYDROchlorothiazide 25mg tablet PO SCH (08:17)
[2021-11-08] MEDS: gabapentin 300mg capsule PO SCH (08:17)
[2021-11-08] MEDS: clonazePAM 1mg tablet PO SCH (08:18)
[2021-11-08] MEDS: loratadine 10mg tablet PO SCH (08:18)
[2021-11-08] MEDS: docusate sod 100mg capsule PO SCH (08:18)
[2021-11-08] MEDS: atorvastatin 20mg tablet PO SCH (08:18)
[2021-11-08 08:19] VITALS: BP_SYST 111
[2021-11-08] MEDS: lisinopril 20mg tablet PO SCH (08:19)
[2021-11-08] MEDS: OMEGA-3/DHA/EPA/FISH OIL 1 EACH CAPSULE.DR PO SCH (08:19)
[2021-11-08] MEDS: amLODIPine 5mg tablet PO SCH (08:19)
[2021-11-08] MEDS: heparin, porcine 5000 units/ml vial SQ SCH (08:21)
--- NOTE | 2021-11-08 10:08 | NUR ---
Initial: Pt admit for acute appendicitis and acute pancreatitis. Pt now POD # 3 s/p laparoscopic appendectomy, Nisha, and umbilical hernia repair. Pt put on a clear liquid diet post-op which was then advanced to CHO controlled and pt eating well with 75-100% PO intake closely meeting estimated nutrient needs. D/w dietary to send double eggs WB and cottage cheese WL to assist with meeting estimated nutrient needs. LBM 11/07. Will continue to follow and monitor need for further nutrition intervention. Recommendations: 1) Continue CHO controlled diet 2) Double eggs WB, cottage cheese WL to assist with meeting estimated nutrient needs 3) Routine bowel care 4) Scaled weight this admit; subsequent weekly scaled weights Addendum: 11/08/21 at [address] Amended: Links added.
[2021-11-08] MEDS ORDERED: PER5325T PO ×2 (11:04)
--- NOTE | 2021-11-08 12:40 | NUR ---
Pt discharged home with . IV dc'd, no tele. Percocet electronically sent to [facility] [address] in [place] but the patient had trouble initially filling it because [facility] has strict guidelines on narcotics. I was able to talk to the pharmacist and clairify the order and patient was supposed to call me back if there were any troubles but i did not hear from them so likely they talked to the pharmacy and were told the prescription was fixed. Pt will f/u with surgeon and stated he understood all discharge instructions
[2021-11-09] MEDS ORDERED: (Dulaglutide (Trulicity) 1.5 MG) SQ SCH (09:00)
[2021-11-17] MEDS ORDERED: HYDR25TA5 PO (01:19)
[2021-11-17] MEDS ORDERED: OXYC-145 PO (01:22)
[2021-11-17] MEDS ORDERED: CYCL-357 PO (02:02)
[2021-11-17] MEDS ORDERED: ATOR20TA PO (02:04)
[2021-11-17] MEDS ORDERED: FLO0.4C PO (02:05)
[2021-11-17] MEDS ORDERED: OMEG-167 PO (02:07)
[2021-11-17] MEDS ORDERED: IBUP-1986 PO (05:58)
[2021-11-20] MEDS ORDERED: OXYC-145 PO (10:57)
[2021-11-20] MEDS ORDERED: AMOX-117 PO (10:58)
== END 2021-11-08 12:45 | disposition home or self-care (01) | DRG 335 ==
LOC: ER 17:41 → ED HOLD 22:14 → PCU 3S 11-05 00:55
PROVIDERS: ADMIT Family Medicine; ATTEND Internal Medicine
PROC: 0DNU4ZZ Release Omentum, Percutaneous Endoscopic Approach (ICD-10-PCS; 2021-11-05)
PROC: 0DN84ZZ Release Small Intestine, Percutaneous Endoscopic Approach (ICD-10-PCS; 2021-11-05)
PROC: 0WQF4ZZ Repair Abdominal Wall, Percutaneous Endoscopic Approach (ICD-10-PCS; 2021-11-05)
PROC: 8E0W4CZ Robotic Assisted Procedure of Trunk Region, Percutaneous Endoscopic Approach (ICD-10-PCS; 2021-11-05)
PROC: 0DTJ4ZZ Resection of Appendix, Percutaneous Endoscopic Approach (ICD-10-PCS; principal; 2021-11-05 07:04)
PROC: 5A09357 Assistance with Respiratory Ventilation, Less than 24 Consecutive Hours, Continuous Positive Airway Pressure (ICD-10-PCS; 2021-11-06)
PROC: 5A09357 Assistance with Respiratory Ventilation, Less than 24 Consecutive Hours, Continuous Positive Airway Pressure (ICD-10-PCS; 2021-11-07)
PROC: 5A09357 Assistance with Respiratory Ventilation, Less than 24 Consecutive Hours, Continuous Positive Airway Pressure (ICD-10-PCS; 2021-11-08)
DX: K35.80 Unspecified acute appendicitis (principal); K85.90 Acute pancreatitis without necrosis or infection, unspecified; J98.11 Atelectasis; R65.10 Systemic inflammatory response syndrome (SIRS) of non-infectious origin without acute organ dysfunction; K42.9 Umbilical hernia without obstruction or gangrene; E86.0 Dehydration; J44.9 Chronic obstructive pulmonary disease, unspecified; E66.01 Morbid (severe) obesity due to excess calories; E78.00 Pure hypercholesterolemia, unspecified; E78.5 Hyperlipidemia, unspecified; E83.42 Hypomagnesemia; E87.6 Hypokalemia; G47.33 Obstructive sleep apnea (adult) (pediatric); G89.4 Chronic pain syndrome; I10 Essential (primary) hypertension; K38.1 Appendicular concretions; K40.20 Bilateral inguinal hernia, without obstruction or gangrene, not specified as recurrent; Z20.822 Contact with and (suspected) exposure to COVID-19; K56.41 Fecal impaction; E11.9 Type 2 diabetes mellitus without complications; R16.2 Hepatomegaly with splenomegaly, not elsewhere classified; R82.4 Acetonuria; K82.4 Cholesterolosis of gallbladder; R91.1 Solitary pulmonary nodule; K66.0 Peritoneal adhesions (postprocedural) (postinfection); K76.0 Fatty (change of) liver, not elsewhere classified; N20.0 Calculus of kidney; F12.10 Cannabis abuse, uncomplicated; Z79.899 Other long term (current) drug therapy; Z82.49 Family history of ischemic heart disease and other diseases of the circulatory system; Z83.3 Family history of diabetes mellitus; Z87.442 Personal history of urinary calculi; Z87.891 Personal history of nicotine dependence; Z68.39 Body mass index [BMI] 39.0-39.9, adult; Z79.84 Long term (current) use of oral hypoglycemic drugs; Z88.8 Allergy status to other drugs, medicaments and biological substances
CPT/HCPCS: 36415; 71046; 74176; 76700; 80053; 80061; 80305; 81001; 82150; 82550; 82948; 83036; 83690; 83735; 83880; 84100; 84132; 84443; 85007; 85025; 85610; 85730; 87081; 87635; 88304; 94640; 94760; 99285; A4215; A4618; C9113; C9803; G0378; J1100; J1170; J1644; J1815; J1885; J2175; J2250; J2270; J2405; J2543; J2704; J2710; J3010; J3475; J3480; J3490; J7030; S0020

== ENCOUNTER 2021-11-22 20:21 | Inpatient (IN) | payer MEDICARE, MEDICAID ==
[~2021-11-22] VITALS: Ht 175.3 cm; Wt 119.0 kg
[~2021-11-22 20:21] MED LIST changes: +ALBU17AE26 PO; +AMLO5TAB16 PO; +AMOX-117 PO; +ATOR20TA PO; +CHOL500050 PO; +CLON-373 PO; -CLON-527 PO; +CLON0.3T36 PO; -CYCL-1 PO; +CYCL-357 PO; +DAPA10TA PO; +DULA1.5P SQ; +EREN70AU SQ; +FEXO-310 PO; +FLO0.4C PO; +FLO110IN PO; -FLUT16SP10 NAS; +FLUT1BLS4; -FURO-150 PO; +GABA300C PO; +GLIM4TAB7 PO; -HYDR-4383 PO; +HYDR25TA5 PO; +IBUP-1986 PO; -LISI20TA28 PO; +LISI40TA13 PO; +METF-438 PO; -METF500T PO; +OMEG-167 PO; +OMEP20CA16 PO; +OXYC-145 PO; +PIOG15TA70 PO; -PRAZ2CAP2 PO; -TEMA30CA5 PO
[2021-11-22] MEDS ORDERED: iohexol 300mg/ml 100ml inj. ONE (22:07)
[2021-11-22] MEDS ORDERED: morphine 4 MG/ML inj SYRINge IV ONE (22:20)
[2021-11-22] MEDS ORDERED: normal saline 1000ml 1,000 ML IV ONE (22:20)
[2021-11-22] MEDS ORDERED: ondansetron/PF 4mg/2ml inj IV ONE (22:20)
[2021-11-22 22:31] LABS: ALANINE AMINOTRANSFERASE 24 U/L (12-78); ALBUMIN/GLOBULIN RATIO 0.6 (1.1-1.5); ALKALINE PHOSPHATASE 134 IU/L (46-116); ANION GAP 8 (8-16); ASPARTATE AMINO TRANSFERASE 12 U/L (10-37); BILIRUBIN,TOTAL 0.2 MG/DL (0.1-1.0); BLOOD UREA NITROGEN 9 MG/DL (7-18); BUN/CREATININE RATIO 10.3 (5.4-32.0); CALCIUM 8.9 MG/DL (8.5-10.1); CHLORIDE 107 MMOL/L (99-107); CREATININE 0.87 MG/DL (0.60-1.10); GLUCOSE 118 MG/DL (70-104); POTASSIUM 3.6 MMOL/L (3.5-5.1); SODIUM 143 MMOL/L (135-145); TOTAL CARBON DIOXIDE 27.9 MMOL/L (24-32); TOTAL PROTEIN 8.2 G/DL (6.4-8.2); eGFR > 90 ML/MIN
[2021-11-22 22:33] LABS: BASOPHILS # (AUTO) 0.1 X10'3 (0-0.2); BASOPHILS % (AUTO) 1.1 % (0-1); EOSINOPHILS # (AUTO) 0.8 X10'3 (0-0.9); EOSINOPHILS % (AUTO) 7.9 % (0-6); HEMATOCRIT 42.5 % (42.0-52.0); HEMOGLOBIN 14.5 g/dl (14.0-17.9); LYMPHOCYTES # (AUTO) 2.9 X10'3 (1.1-4.8); LYMPHOCYTES % (AUTO) 27.8 % (21-51); MEAN CORPUSCULAR HGB CONC 34.1 g/dL (33.0-36.5); MEAN CORPUSCULAR VOLUME 87.9 FL (78-98); MEAN PLATELET VOLUME 8.9 FL (7.4-10.4); MONOCYTES # (AUTO) 0.8 X10'3 (0-0.9); MONOCYTES % (AUTO) 7.9 % (2-12); NEUTROPHILS # (AUTO) 5.9 X10'3 (1.8-7.7); NEUTROPHILS % (AUTO) 55.3 % (42-75); PLATELET COUNT 364 X10'3 (140-440); RED BLOOD COUNT 4.84 X10'6 (4.70-6.10); RED CELL DISTRIBUTION WIDTH 13.8 % (11.5-14.5); WHITE BLOOD COUNT 10.6 X10'3 (4.5-11.0)
[2021-11-22 22:55] LABS: CLARITY,URINE CLEAR (Clear); COLOR,URINE YELLOW (Yellow); GLUCOSE, URINE >=1000 mg/dl (Neg); KETONES,URINE TRACE mg/dl (Neg); LEUKOCYTE ESTERASE ,URINE NEGATIVE (Neg); NITRITES, URINE NEGATIVE (Neg); OCCULT BLOOD,URINE NEGATIVE (Neg); PH,URINE 5.5 (4.8-8.0); PROTEIN,URINE NEGATIVE (Neg); UROBILINOGEN,URINE 0.2 E.U/dL (0.2-1.0)
[2021-11-22 22:57] LABS: UA COLLECTION TYPE CLN CATCH MIDSTREAM
[2021-11-22 23:02] LABS: BACTERIA,URINE NONE SEEN /HPF (Neg); RBC,URINE NONE SEEN /HPF (0-2); WBC,URINE 0-4 /HPF (0-4)
[2021-11-22 23:03] LABS: MUCUS STRANDS NONE SEEN /LPF (Neg); SQUAMOUS EPITHELIAL CELL,UR FEW /LPF (FEW)
[2021-11-22] MEDS ORDERED: HYDROmorphone inj. 0.5 MG/0.5 ML DISP.SYRIN IV ONE (23:35)
[2021-11-23] MEDS ORDERED: HYDROmorphone 1 mg/ml syringe IV ONE ×2 (02:10→03:30)
[2021-11-23] MEDS ORDERED: ondansetron/PF 4mg/2ml inj IV ONE (03:45)
[2021-11-23] MEDS ORDERED: DEXTROSE 15 GM of carb/4 tabs (each vial/BOTTLE has 4 tablets) PO PRN ×2 (04:00)
[2021-11-23] MEDS ORDERED: MESSAGE TO PHARMACY PO ONE (04:00)
[2021-11-23] MEDS ORDERED: naloxone 0.4 mg/ml inj IV PRN (04:00)
[2021-11-23] MEDS ORDERED: POTASSIUM BICARB 20meq eff tab 20 MEQ TABLET.EFF PO PRN ×2 (04:00)
[2021-11-23] MEDS ORDERED: acetaminophen 325mg tablet PO PRN (04:00)
[2021-11-23] MEDS ORDERED: magnesium 2GM in 50ml NS 50 ML IV PRN (04:00)
[2021-11-23] MEDS ORDERED: dextrose 50%-water 50ml dispensing syringe IV PRN ×2 (04:00)
[2021-11-23] MEDS ORDERED: glucagon, human recombinant 1mg kit SUBCUT PRN (04:00)
[2021-11-23] MEDS ORDERED: potassium CL 10mEq/100ml bag 100 ML IV PRN (04:00)
[2021-11-23] MEDS ORDERED: magnesium Cl slow-release 64mg tablet PO PRN (04:00)
[2021-11-23] MEDS ORDERED: magnesium 4gm in 100ml NS 100 ML IV PRN (04:00)
[2021-11-23] MEDS ORDERED: insulin Lispro (HumaLOG) vial - multi-dose SQ SCH (04:00)
[2021-11-23] MEDS ORDERED: piperacillin/tazo 3.375gm/50ml 50 ML IV SCH (04:19)
[2021-11-23] MEDS: normal saline 1000ml 1,000 ML IV SCH ×3 (04:55→23:52)
[2021-11-23] MEDS ORDERED: HYDROmorph/NS 0.2 mg/ml PCA 100 ML IV SCH ×2 (05:00→09:00)
[2021-11-23 05:49] LABS: MAGNESIUM 1.6 MG/DL (1.5-2.4); POTASSIUM 3.6 MMOL/L (3.5-5.1)
[2021-11-23 05:51] LABS: HEMOGLOBIN A1C 6.7 % (4.5-6.2)
[2021-11-23] MEDS ORDERED: cyclobenzaprine 10mg tablet PO PRN (05:55)
[2021-11-23] MEDS ORDERED: albuterol 2.5 MG/3 ML nebule NEB PRN (05:55)
[2021-11-23] MEDS ORDERED: gabapentin 300mg capsule PO PRN ×2 (05:55)
[2021-11-23] MEDS ORDERED: ERENUMAB AOOE 70 MG SQ SCH (05:55)
[2021-11-23] MEDS: atorvastatin 20mg tablet PO SCH (07:53)
[2021-11-23] MEDS: pantoprazole 40mg Tablet.DR PO SCH (07:54)
[2021-11-23] MEDS: amLODIPine 5mg tablet PO SCH (07:54)
[2021-11-23] MEDS: clonazePAM 1mg tablet PO SCH ×3 (07:54→20:52)
[2021-11-23] MEDS: tamsulosin 0.4mg capsule PO SCH (07:54)
[2021-11-23] MEDS: OMEGA-3/DHA/EPA/FISH OIL 1 EACH CAPSULE.DR PO SCH ×2 (07:54→20:51)
[2021-11-23] MEDS: heparin, porcine 5000 units/ml vial SQ SCH ×2 (07:55→20:53)
[2021-11-23] MEDS: lisinopril 20mg tablet PO SCH (08:00)
[2021-11-23] MEDS: TYPE IN GENERIC & BRAND NAME OF PATIENT MED STRENGTH & FORM IH SCH (08:00)
[2021-11-23] MEDS: docusate sod 100mg capsule PO SCH ×2 (08:00→20:51)
[2021-11-23] MEDS: K and/or MAG REPLACEMENT MC SCH ×2 (08:00→20:00)
--- NOTE | 2021-11-23 08:00 | NUR ---
PT PROVIDED WITH FULL LIQUID MEAL. PAGED DR. RAMOS TO ADVANCE DIET ORDERS. WILL WAIT FOR CALL BACK. APPROX 50ML BROWN LIQUID DRAINED FROM [facility] DRAIN.
[2021-11-23] MEDS: budesonide 0.5mg/2ml UD nebule IH SCH ×2 (09:00→20:12)
[2021-11-23] MEDS ORDERED: PCA WASTE DOCUMENTATION MC SCH (09:05)
--- NOTE | 2021-11-23 10:00 | NUR ---
DR. RAMOS AT BEDSIDE. UPDATED ON POC. WILL ADVANCE DIET TO REGULAR DIET.
--- NOTE | 2021-11-23 11:10 | NUR ---
DILAUDID PAVING RAMMER PUMP STOPPED PER DR. RAMOS ORDER. WILL TRANSITION PT TO [facility]. PT INFORMED OF PLAN.
--- NOTE | 2021-11-23 12:00 | NUR ---
PROVIDED WITH MEAL TRAY, SITTING AT BED TOLERATING WELL.
[2021-11-23] MEDS: HYDROcodone/acetaminophen 10/325mg tab PO SCH ×3 (12:44→20:51)
[2021-11-23] MEDS: piperacillin/tazo 3.375gm/50ml 50 ML IV SCH ×2 (13:25→21:05)
[2021-11-23] MEDS: ondansetron/PF 4mg/2ml inj IV PRN ×2 (15:46→22:31)
--- NOTE | 2021-11-23 17:30 | NUR ---
DINNER TRAY PROVIDED.
[2021-11-23] MEDS: HYDROmorphone inj. 0.5 MG/0.5 ML DISP.SYRIN IV PRN ×2 (19:52→23:54)
[2021-11-23 20:50] VITALS: BP 153/99
[2021-11-23] MEDS: cloNIDine 0.1 mg tablet PO SCH (20:52)
[2021-11-23] MEDS: insulin glargine (Lantus) pen - multi-dose SQ SCH (20:54)
[2021-11-24] MEDS: HYDROcodone/acetaminophen 10/325mg tab PO SCH ×6 (01:01→20:40)
[2021-11-24] MEDS: normal saline 1000ml 1,000 ML IV SCH ×2 (02:24→20:00)
[2021-11-24] MEDS: HYDROmorphone inj. 0.5 MG/0.5 ML DISP.SYRIN IV PRN ×5 (03:55→21:42)
[2021-11-24] MEDS: ondansetron/PF 4mg/2ml inj IV PRN ×4 (04:47→23:12)
[2021-11-24] MEDS: piperacillin/tazo 3.375gm/50ml 50 ML IV SCH ×3 (04:50→21:12)
[2021-11-24 06:00] VITALS: BP 154/94
[2021-11-24 06:16] LABS: BASOPHILS % (AUTO) 0.5 % (0-1); EOSINOPHILS # (AUTO) 0.8 X10'3 (0-0.9); EOSINOPHILS % (AUTO) 10.5 % (0-6); HEMATOCRIT 36.8 % (42.0-52.0); HEMOGLOBIN 12.4 g/dl (14.0-17.9); LYMPHOCYTES % (AUTO) 37.7 % (21-51); MEAN CORPUSCULAR HEMOGLOBIN 29.8 PG (27.0-31.0); MEAN CORPUSCULAR HGB CONC 33.7 g/dL (33.0-36.5); MEAN CORPUSCULAR VOLUME 88.4 FL (78-98); MEAN PLATELET VOLUME 9.6 FL (7.4-10.4); MONOCYTES # (AUTO) 0.6 X10'3 (0-0.9); MONOCYTES % (AUTO) 7.9 % (2-12); NEUTROPHILS # (AUTO) 3.5 X10'3 (1.8-7.7); NEUTROPHILS % (AUTO) 43.4 % (42-75); PLATELET COUNT 279 X10'3 (140-440); RED BLOOD COUNT 4.17 X10'6 (4.70-6.10); RED CELL DISTRIBUTION WIDTH 13.4 % (11.5-14.5)
[2021-11-24 06:20] LABS: ALANINE AMINOTRANSFERASE 25 U/L (12-78); ALBUMIN 2.5 G/DL (3.4-5.0); ALBUMIN/GLOBULIN RATIO 0.6 (1.1-1.5); ALKALINE PHOSPHATASE 86 IU/L (46-116); ANION GAP 3 (8-16); ASPARTATE AMINO TRANSFERASE 16 U/L (10-37); BILIRUBIN,TOTAL 0.3 MG/DL (0.1-1.0); BLOOD UREA NITROGEN 10 MG/DL (7-18); BUN/CREATININE RATIO 14.1 (5.4-32.0); CALCIUM 8.1 MG/DL (8.5-10.1); CHLORIDE 107 MMOL/L (99-107); CREATININE 0.71 MG/DL (0.60-1.10); GLUCOSE 162 MG/DL (70-104); POTASSIUM 3.7 MMOL/L (3.5-5.1); SODIUM 141 MMOL/L (135-145); TOTAL CARBON DIOXIDE 30.6 MMOL/L (24-32); TOTAL PROTEIN 6.7 G/DL (6.4-8.2); eGFR > 90 ML/MIN
--- NOTE | 2021-11-24 06:30 | NUR ---
received report from mima modi
[2021-11-24] MEDS: docusate sod 100mg capsule PO SCH ×2 (07:36→21:18)
[2021-11-24] MEDS: OMEGA-3/DHA/EPA/FISH OIL 1 EACH CAPSULE.DR PO SCH ×2 (07:37→21:19)
[2021-11-24] MEDS: tamsulosin 0.4mg capsule PO SCH (07:37)
[2021-11-24] MEDS: clonazePAM 1mg tablet PO SCH ×3 (07:38→21:19)
[2021-11-24] MEDS: atorvastatin 20mg tablet PO SCH (07:38)
[2021-11-24] MEDS: lisinopril 20mg tablet PO SCH (07:39)
[2021-11-24] MEDS: amLODIPine 5mg tablet PO SCH (07:40)
[2021-11-24] MEDS: pantoprazole 40mg Tablet.DR PO SCH (07:40)
[2021-11-24] MEDS: heparin, porcine 5000 units/ml vial SQ SCH ×2 (07:41→21:16)
[2021-11-24] MEDS: K and/or MAG REPLACEMENT MC SCH ×2 (07:46→20:00)
[2021-11-24] MEDS: TYPE IN GENERIC & BRAND NAME OF PATIENT MED STRENGTH & FORM IH SCH (08:00)
[2021-11-24] MEDS: budesonide 0.5mg/2ml UD nebule IH SCH ×2 (09:32→20:48)
[2021-11-24 10:00] VITALS: BP 126/77
--- NOTE | 2021-11-24 12:43 | NUR ---
hosptalist said that he spoke w/dr. ross yesterday about d/c pt yelena drain, I called dr. ross about pt yelena drain, dr. ross told me that IR is supposed to be pulling pt yelena drain
--- NOTE | 2021-11-24 15:34 | NUR ---
KARI MONTANO pulled drain, folded 4X4 and clear dressing w/slight serosanguineous drainage on dressing, pt claimed that 'it still hurts a lot but i did get a little relief', sent a page to hospitalist notifying of yelena removal and that pt claims that he is in a lot of pain
[2021-11-24 18:00] VITALS: BP 126/94
--- NOTE | 2021-11-24 18:35 | NUR ---
gave report to mima modi
[2021-11-24] MEDS: insulin glargine (Lantus) pen - multi-dose SQ SCH (21:00)
[2021-11-24] MEDS: cloNIDine 0.1 mg tablet PO SCH (21:18)
[2021-11-24 22:00] VITALS: BP 149/90
[2021-11-25] MEDS: HYDROcodone/acetaminophen 10/325mg tab PO SCH ×3 (00:03→09:44)
[2021-11-25] MEDS: HYDROmorphone inj. 0.5 MG/0.5 ML DISP.SYRIN IV PRN ×2 (01:57→06:00)
[2021-11-25 05:00] VITALS: BP 147/87
[2021-11-25] MEDS: ondansetron/PF 4mg/2ml inj IV PRN (05:15)
[2021-11-25] MEDS: piperacillin/tazo 3.375gm/50ml 50 ML IV SCH (05:17)
[2021-11-25] MEDS: normal saline 1000ml 1,000 ML IV SCH (06:00)
[2021-11-25 06:02] LABS: BASOPHILS # (AUTO) 0.1 X10'3 (0-0.2); BASOPHILS % (AUTO) 0.8 % (0-1); EOSINOPHILS # (AUTO) 0.7 X10'3 (0-0.9); EOSINOPHILS % (AUTO) 9.7 % (0-6); HEMATOCRIT 37.6 % (42.0-52.0); HEMOGLOBIN 12.4 g/dl (14.0-17.9); LYMPHOCYTES # (AUTO) 2.7 X10'3 (1.1-4.8); LYMPHOCYTES % (AUTO) 38.8 % (21-51); MEAN CORPUSCULAR HEMOGLOBIN 29.1 PG (27.0-31.0); MEAN CORPUSCULAR VOLUME 88.2 FL (78-98); MEAN PLATELET VOLUME 8.8 FL (7.4-10.4); MONOCYTES # (AUTO) 0.6 X10'3 (0-0.9); MONOCYTES % (AUTO) 8.1 % (2-12); NEUTROPHILS # (AUTO) 2.9 X10'3 (1.8-7.7); NEUTROPHILS % (AUTO) 42.6 % (42-75); PLATELET COUNT 269 X10'3 (140-440); RED BLOOD COUNT 4.26 X10'6 (4.70-6.10); WHITE BLOOD COUNT 6.9 X10'3 (4.5-11.0)
[2021-11-25 06:13] LABS: ALANINE AMINOTRANSFERASE 28 U/L (12-78); ALBUMIN 2.6 G/DL (3.4-5.0); ALBUMIN/GLOBULIN RATIO 0.6 (1.1-1.5); ALKALINE PHOSPHATASE 94 IU/L (46-116); ANION GAP 6 (8-16); ASPARTATE AMINO TRANSFERASE 18 U/L (10-37); BILIRUBIN,TOTAL 0.3 MG/DL (0.1-1.0); BLOOD UREA NITROGEN 9 MG/DL (7-18); BUN/CREATININE RATIO 10.8 (5.4-32.0); CHLORIDE 106 MMOL/L (99-107); CREATININE 0.83 MG/DL (0.60-1.10); GLUCOSE 199 MG/DL (70-104); POTASSIUM 3.8 MMOL/L (3.5-5.1); SODIUM 144 MMOL/L (135-145); TOTAL CARBON DIOXIDE 31.7 MMOL/L (24-32); eGFR > 90 ML/MIN
--- NOTE | 2021-11-25 06:49 | NUR ---
Patient in room ORTHO 4016. I have received report from DENISE SMITH and had the opportunity to ask questions and assume patient care.
[2021-11-25] MEDS: TYPE IN GENERIC & BRAND NAME OF PATIENT MED STRENGTH & FORM IH SCH ×2 (07:57→07:59)
[2021-11-25] MEDS: K and/or MAG REPLACEMENT MC SCH (08:00)
[2021-11-25] MEDS: budesonide 0.5mg/2ml UD nebule IH SCH (08:08)
[2021-11-25] MEDS ORDERED: HYDR-3972 PO (08:45)
[2021-11-25] MEDS: clonazePAM 1mg tablet PO SCH (09:42)
[2021-11-25] MEDS: OMEGA-3/DHA/EPA/FISH OIL 1 EACH CAPSULE.DR PO SCH (09:42)
[2021-11-25] MEDS: tamsulosin 0.4mg capsule PO SCH (09:42)
[2021-11-25] MEDS: atorvastatin 20mg tablet PO SCH (09:43)
[2021-11-25] MEDS: docusate sod 100mg capsule PO SCH (09:43)
[2021-11-25] MEDS: pantoprazole 40mg Tablet.DR PO SCH (09:43)
[2021-11-25] MEDS: amLODIPine 5mg tablet PO SCH (09:43)
[2021-11-25] MEDS: lisinopril 20mg tablet PO SCH (09:44)
[2021-11-25] MEDS: heparin, porcine 5000 units/ml vial SQ SCH (09:47)
[2021-11-25 09:56] VITALS: BP 139/89
--- NOTE | 2021-11-25 14:00 | NUR ---
PATIENT STABLE AND APPROPRIATE FOR DISCHARGE, IV REMOVED, EDUCATION GIVEN, NEW MED E-SCRIPTED TO PREFERRED PHARMACY, ALL BELONGINGS SENT WITH PATIENT, PATIENT TAKEN TO LOBBY BY WHEEL CHAIR TO AN AWAITING CAR WHERE WILL TAKE PATIENT HOME. WHEN PATIENT GOT TO CAR PATIENT TOLD AIDE THAT AN INHALER WAS FORGOTTEN ON UNIT. LOOKED IN PATIENT SPECIFIC AND OTHER BINS, CALLED PHARMACY THEY SAID MED HAD BEEN SENT TO UNIT, THERE WAS NO DOCUMENTATION IN THE CHART ABOUT MED BEING TURNED OVER TO PHARMACY( [facility]) RESPIRATORY NEVER GAVE THE INHALER DUE TO MED BEING UNAVAILABLE. AIDJo LOOKED THROUGH PATIENTS BAGS TO MAKE SURE IT WAS NOT IN THEIR BAGS AND I LOOKED IN ROOM TO MAKE SURE THE INHALER WAS NOT IN ROOM. INHALER WAS NOT FOUND. CONFIRMED MEDS WAS DELIVERED TO RIGHT UNIT PER THEIR DOCUMENTATION IT WAS SENT TO ORTHO/NEURO UNIT. IN BELONGINGS LIST NO WAS CHECKED FOR MEDS WITH PATIENT BY SENT TO PHARMACY WAS ALSO CHECKED. CALL WAS ALSO MADE TO HAVE PHARMACY LOOK IN THEIR AREA. WILL CONTINUE TO LOOK FOR INHALER
--- NOTE | 2021-12-01 13:51 | NUR ---
Case Management DC follow up:Unable to contact Patient via the telephone number provided.Obtained second number from Dr. Boyce office: Left with name, number, and reason for call
== END 2021-11-25 12:12 | disposition home or self-care (01) | DRG 863 ==
LOC: ER 20:23 → ED HOLD 11-23 03:59 → ORTHO 4S 11-23 19:47
PROVIDERS: ADMIT Internal Medicine; ATTEND Internal Medicine
PROC: BW211ZZ Computerized Tomography (CT Scan) of Abdomen and Pelvis using Low Osmolar Contrast (ICD-10-PCS; principal; 2021-11-22)
DX: T81.43XA Infection following a procedure, organ and space surgical site, initial encounter (principal); L02.211 Cutaneous abscess of abdominal wall; J44.9 Chronic obstructive pulmonary disease, unspecified; E78.5 Hyperlipidemia, unspecified; E11.9 Type 2 diabetes mellitus without complications; F41.9 Anxiety disorder, unspecified; G47.30 Sleep apnea, unspecified; I10 Essential (primary) hypertension; E78.00 Pure hypercholesterolemia, unspecified; Y83.8 Other surgical procedures as the cause of abnormal reaction of the patient, or of later complication, without mention of misadventure at the time of the procedure; Z79.899 Other long term (current) drug therapy; Z82.49 Family history of ischemic heart disease and other diseases of the circulatory system; Z83.3 Family history of diabetes mellitus; Z90.49 Acquired absence of other specified parts of digestive tract; Z79.84 Long term (current) use of oral hypoglycemic drugs; Z88.8 Allergy status to other drugs, medicaments and biological substances; Y92.89 Other specified places as the place of occurrence of the external cause
CPT/HCPCS: 36415; 71045; 74177; 80053; 81001; 82948; 83036; 83605; 83735; 84132; 84145; 85025; 87040; 87081; 94640; 94760; 99285; A6258; A6402; A6449; G0378; J1170; J1644; J1815; J2270; J2405; J2543; J3490; J7030; Q9967

== ENCOUNTER 2022-09-20 00:24 | Emergency (ER) | payer MEDICARE, MEDICAID ==
[~2022-09-20] VITALS: Ht 177.8 cm; Wt 103.4 kg
[~2022-09-20 00:24] MED LIST changes: -AMOX-117 PO; +HYDR-3972 PO
[2022-09-20 00:30] VITALS: BP 163/113
[2022-09-20] MEDS ORDERED: HYDROcodone/acetaminophen 5mg/325mg tablet PO ONE (02:35)
[2022-09-20] MEDS ORDERED: AMOX500C2 PO (02:40)
[2022-09-20] MEDS ORDERED: HYDR-3965 PO (02:40)
== END 2022-09-20 02:54 | disposition home or self-care (01) ==
LOC: ER 00:25
DX: K04.7 Periapical abscess without sinus (principal); I10 Essential (primary) hypertension; J44.9 Chronic obstructive pulmonary disease, unspecified; E78.00 Pure hypercholesterolemia, unspecified; F12.10 Cannabis abuse, uncomplicated; Z90.49 Acquired absence of other specified parts of digestive tract; Z98.890 Other specified postprocedural states; Z88.5 Allergy status to narcotic agent; Z79.899 Other long term (current) drug therapy; Z79.1 Long term (current) use of non-steroidal anti-inflammatories (NSAID); Z79.2 Long term (current) use of antibiotics
CPT/HCPCS: 99283